=== PATIENT | male | born 1945 | race Caucasian/White ===

== ENCOUNTER 2018-09-16 23:52 | Emergency (ER) | payer BC, MEDICARE ==
[~2018-09-16] VITALS: Ht 175.3 cm; Wt 103.6 kg
[2018-09-17 00:05] VITALS: BP 150/73
== END 2018-09-17 00:27 ==
LOC: ER 23:52
DX: F10.929 Alcohol use, unspecified with intoxication, unspecified (principal); Z02.89 Encounter for other administrative examinations; I25.10 Atherosclerotic heart disease of native coronary artery without angina pectoris; E78.00 Pure hypercholesterolemia, unspecified; I10 Essential (primary) hypertension; I25.2 Old myocardial infarction; E11.9 Type 2 diabetes mellitus without complications; Z98.61 Coronary angioplasty status
CPT/HCPCS: 99283

== ENCOUNTER 2022-11-03 13:32 | Emergency (ER) | payer BC ==
[~2022-11-03] VITALS: Ht 182.9 cm; Wt 127.3 kg
--- NOTE | 2022-11-03 13:35 | NUR ---
5028 CARDIAC BEDSIDE US DONE DISPLAYING NO CARDIAC WALL MOVEMENT, TOD CALLED BY DR DOLAN.
[2022-11-03 13:45] VITALS: BP 0/0
--- NOTE | 2022-11-03 14:07 | NUR ---
ATTEMPTED TO CALL FAMILY, PHONE HAS BEEN DISCONNECTED. DR DOLAN NOTIFIED.
--- NOTE | 2022-11-03 16:35 | NUR ---
CONTACT WAS MADE WITH PT'S , MARIANNE MOON. MRS MOON REQUESTED THAT PT BE SENT TO [facility] IN [place]. SHE WAS PROVIDED WITH THE ADDRESS AND PHONE# OF THE MORTUARY. MRS MOON STATED THAT PT HAS HX OF CA AND STENTS AND HE WAS A "BORDERLINE DIABETIC", NO HX OF KIDNEY/LIVER DISEASE OR CA. 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
== END 2022-11-03 19:59 ==
LOC: ER 13:33
DX: I46.9 Cardiac arrest, cause unspecified (principal); E78.00 Pure hypercholesterolemia, unspecified; I10 Essential (primary) hypertension; E11.9 Type 2 diabetes mellitus without complications
CPT/HCPCS: 92950; 99285